=== PATIENT | female | born 1970 | race Caucasian/White ===

== ENCOUNTER 2021-03-04 14:13 | Emergency (ER) | payer OTHER ==
[~2021-03-04] VITALS: Ht 157.5 cm; Wt 54.4 kg
[2021-03-04 14:24] VITALS: BP 132/81
[2021-03-04] MEDS ORDERED: IBUP-1955 PO (14:41)
[2021-03-04] MEDS ORDERED: AMOX500C2 PO (14:42)
--- NOTE | 2021-03-04 14:51 | NUR ---
Patient discharged to home in stable condition. Written and verbal after care instructions given. Patient verbalizes understanding of instruction.
== END 2021-03-04 14:51 | disposition home or self-care (01) ==
LOC: ER 14:13
DX: J32.0 Chronic maxillary sinusitis (principal); J32.1 Chronic frontal sinusitis; G89.29 Other chronic pain

== ENCOUNTER 2021-05-09 13:12 | Emergency (ER) | payer OTHER ==
[~2021-05-09] VITALS: Ht 157.5 cm; Wt 78.9 kg
[~2021-05-09 13:12] MED LIST: AMOX500C2 PO; IBUP-1955 PO
--- NOTE | 2021-05-09 13:35 | NUR ---
PT AMBULATORY TO ER BED 12 C/O L FOOT/ANKLE AND LOWER BACK PAIN S/P GLF YESTERDAY AFTERNOON, PT STATES LANDED ON HER BACK. DENIES HEAD TRAUMA. STABLE VITALS. AWAITING MD CARTER.
--- NOTE | 2021-05-09 13:55 | NUR ---
RADIOLOGY AT BEDSIDE FOR L FOOT XRAY.
--- NOTE | 2021-05-09 14:31 | NUR ---
PROVIDED W/ SHEKHAR BANDAGE. DISCHARGE HOME IN STABLE CONDITION.
[2021-05-09 14:32] VITALS: BP 101/66
== END 2021-05-09 14:32 | disposition home or self-care (01) ==
LOC: ER 13:16
DX: S93.492A Sprain of other ligament of left ankle, initial encounter (principal); X50.1XXA Overexertion from prolonged static or awkward postures, initial encounter; Y93.01 Activity, walking, marching and hiking; Y92.89 Other specified places as the place of occurrence of the external cause; Y99.8 Other external cause status
CPT/HCPCS: 73610-TC